=== PATIENT | male | born 1995 | race Caucasian/White ===

== ENCOUNTER 2024-05-06 15:22 | Emergency (ER) | payer OTHER ==
[~2024-05-06] VITALS: Ht 182.9 cm; Wt 118.7 kg
[2024-05-06] MEDS: LIDOCAINE 1% MDV 20ML VIAL SC ONE (18:15)
[2024-05-06] MEDS ORDERED: CEPH500C PO (18:38)
[2024-05-06 19:06] VITALS: BP 142/96; TEMP 99; O2SAT 96
== END 2024-05-06 19:24 | disposition home or self-care (01) ==
LOC: M ED 15:22
DX: S91.114A Laceration without foreign body of right lesser toe(s) without damage to nail, initial encounter (principal); W26.8XXA Contact with other sharp object(s), not elsewhere classified, initial encounter; Y92.838 Other recreation area as the place of occurrence of the external cause; Y93.11 Activity, swimming; Y99.9 Unspecified external cause status; Z87.891 Personal history of nicotine dependence